=== PATIENT | male | born 1955 | race Asian ===

== ENCOUNTER 2017-05-04 11:43 | Emergency (ER) | payer MEDICARE, OTHER ==
[~2017-05-04] VITALS: Ht 177.8 cm; Wt 79.4 kg
[~2017-05-04 11:43] MED LIST: IBUPROFEN600 MG ORAL; UNOBMED
[2017-05-04] MEDS ORDERED: Norco 5mg/325mg tab PO ONE (11:45)
[2017-05-04 13:34] VITALS: BP 113/75
[2017-05-04] MEDS ORDERED: NORCO 5-325 TA1 EACH ORAL (14:01)
[2017-05-04] MEDS ORDERED: IBUPROFEN600 MG ORAL (14:01)
[2017-05-04 14:19] VITALS: BP 122/71
--- NOTE | 2017-05-04 14:40 | Emergency Room Report ---
History of Present Illness General Chief Complaint: Pain Source: Patient Present Illness HPI 61-year-old male presents ED for evaluation. Patient brought in by EMS for back pain hip pain. States he fell 2 days ago at his house. States he is unable to bear weight. Notes pain to his back and hip. Pain radiating down his right leg. 10 out of 10, throbbing. Denies hitting his head or LOC. Denies any other injuries. No other aggravating relieving factors. Denies any other substance symptoms Allergies: Coded Allergies: No Known Allergies (Unverified , 02/26/16) Patient History Past Medical History: DM, HTN Past Surgical History: none Pertinent Family History: none Social History: Denies: smoking, alcohol use, drug use Immunizations: UTD Reviewed Nursing Documentation: PMH: Agreed, PSxH: Agreed Nursing Documentation-PMH Hx Hypertension: Yes Hx Diabetes: Yes Review of Systems All Other Systems: negative except mentioned in HPI Physical Exam Vital Signs Date Time Temp Pulse Resp B/P (MAP) Pulse Ox O2 Delivery O2 Flow Rate FiO2 05/04/17 11:29 98.2 88 16 112/80 96 Room Air 98.2 Sp02 EP Interpretation: reviewed, normal General Appearance: alert, GCS 15, non-toxic, mild distress Head: normocephalic Eyes: bilateral eye normal inspection, bilateral eye PERRL ENT: hearing grossly normal, normal pharynx, no angioedema, normal voice Neck: full range of motion, no bony tend, supple/symm/no masses Respiratory: normal inspection Cardiovascular #1: normal inspection Gastrointestinal: normal inspection Rectal: deferred Genitourinary: no CVA tenderness, vertebral tenderness Musculoskeletal: normal range of motion, tender - R Hip. RLE Neurologic: alert, oriented x3, responsive, motor strength/tone normal, sensory intact, speech normal Psychiatric: normal inspection Skin: normal inspection Lymphatic: normal inspection Medical Decision Making Diagnostic Impression: Primary Impression: Fall Qualified Codes: W19.XXXA - Unspecified fall, initial encounter Additional Impression: Back pain Qualified Codes: M54.5 - Low back pain ER Course Hospital Course 61 yo M presents to ED c/o back pain, RLE pain s/p fall down stairs Differential diagnoses include: Fracture, dislocation, sprain, contusion Clinical course Patient placed on stretcher. After initial history and physical, I ordered pain medications and imaging studies Xrays prelim read shows no acute fracture/dislocation. CT of Pelvis, and Lspine unremarkable discussed findings iwth patient. on reassessment pain improved. ambulating in ED Diagnosis - fall, back pain Stable and discharged to home with prescription for Motrin, Blanca. apply ice, keep elevated. weight bear as tolerated. Followup with PMD. Return to ED if symptoms recur or worsen Other X-Ray Diagnostic Results Other X-Ray Diagnostic Results #1: X-Ray ordered: R femur # of Views/Limited Vs Complete: 2 View Indication: Pain EP Interpretation: Yes Interpretation: no dislocation, no soft tissue swelling, no fractures Impression: No acute disease Electronically Signed by: Electronically signed by Yosvany Carlos MD Other X-Ray Diagnostic Results #2: X-Ray ordered: R knee # of Views/Limited Vs Complete: 3 View Indication: Pain EP Interpretation: Yes Interpretation: no dislocation, no soft tissue swelling, no fractures Impression: No acute disease Electronically Signed by: Electronically signed by Yosvany Carlos MD Other X-Ray Diagnostic Results #3: X-Ray ordered: R tibfib # of Views/Limited Vs Complete: 2 View Indication: Pain EP Interpretation: Yes Interpretation: no dislocation, no soft tissue swelling, no fractures Impression: No acute disease Electronically Signed by: Electronically signed by Yosvany Carlos MD CT/MRI/US Diagnostic Results CT/MRI/US Diagnostic Results #1: Imaging Test Ordered: CT L spine Impression no acute process CT/MRI/US Diagnostic Results #2: Imaging Test Ordered: CT Pelvis Impression no acute process Last Vital Signs Date Time Temp Pulse Resp B/P (MAP) Pulse Ox O2 Delivery O2 Flow Rate FiO2 05/04/17 14:19 98.1 71 17 122/71 100 Room Air 98.7 Status: improved Disposition: HOME, SELF-CARE Condition: Stable Scripts Ibuprofen* (MOTRIN*) 600 Mg Tablet 600 MG ORAL Q8H Y for For Pain, #30 TAB 0 Refills Prov: YOSVANY CARLOS M.D. 05/04/17 Hydrocodone Bit/Acetaminophen 5-325* (NORCO 5-325*) 1 Each Tablet 1 TAB ORAL Q6H Y for For Pain, #10 TAB 0 Refills Prov: YOSVANY CARLOS M.D. 05/04/17 Patient Instructions: Back Pain, Adult, [id number] YOSVANY CARLOS M.D. May 04, 2017 14:40
--- NOTE | 2017-05-05 10:27 | Diagnostic Imaging Report ---
Indication: Back pain Technique: Continuous helical transaxial imaging of the lumbar spine was obtained from the lung bases to the pubic symphysis. No IV contrast was administered. Coronal 2-D reformats were also obtained. Study obtained in a Siemens sensation [address] Total Dose length Product (DLP): 377.[address] Dose Index Volume (CTDIvol): 12.67 mGy Comparison: None Findings: There is no evidence of an acute fracture or malalignment. Height and configuration of the vertebral bodies and intervertebral discs are within normal limits. Minimal vertebral endplate osteophytes are noted. The facets are mildly hypertrophic. There is no soft tissue swelling. Large cyst projecting off the lower pole left kidney noted. Impression: No acute injury. Mild degenerative disease The CT scanner at [facility] is accredited by the [employer] and the scans are performed using dose optimization techniques as appropriate to a performed exam including Automatic Exposure control.
--- NOTE | 2017-05-05 11:04 | Diagnostic Imaging Report ---
Indication: Pelvic pain. Trauma Technique: Continuous helical transaxial imaging of the pelvis was obtained from the iliac crest to the pubic symphysis. Coronal 2-D reformats were also obtained. Study obtained in a Siemens sensation [address] Intravenous non-ionic contrast was administered. Total Dose length Product (DLP): [address] Dose Index Volume (CTDIvol): 0.25, 11.91 mGy Comparison: None Findings: There is no acute fracture or malalignment identified. Marginal spur formation and joint space narrowing noted involving both hip joints. There is a small right inguinal hernia incidentally noted containing fat. Normal appendix incidentally noted. IMPRESSION: No acute injury. Other incidental findings as above. [facility] has communicated the preliminary results to the Emergency Department. Their findings are largely concordant with this report. The CT scanner at [facility] is accredited by the [employer] and the scans are performed using dose optimization techniques as appropriate to a performed exam including Automatic Exposure control.
--- NOTE | 2017-05-05 11:40 | Diagnostic Imaging Report ---
Indication: Pain 3 views of the right knee were obtained. Findings: No acute fracture, malalignment, or joint effusion are identified. Joint space is relatively well-maintained. Impression: Negative for acute findings.
--- NOTE | 2017-05-05 11:41 | Diagnostic Imaging Report ---
Indication: Pain Findings: 2 views of the right femur were obtained. No acute fractures, malalignment, erosions or periostitis are identified. Soft tissues are unremarkable. Impression: Negative examination of the femur
--- NOTE | 2017-05-05 11:41 | Diagnostic Imaging Report ---
Indication: Pain Comparison: None Findings: Two views of the right tibia and fibula were obtained. No acute fracture, malalignment, or periosteal reaction are identified. Soft tissues are unremarkable. Impression: Negative examination of the tibia and fibula
== END 2017-05-04 14:15 | disposition home or self-care (01) ==
LOC: EDBD 11:43 → EMR 12:30
DX: M54.5 Low back pain (principal); M79.661 Pain in right lower leg; M25.551 Pain in right hip; W10.9XXA Fall (on) (from) unspecified stairs and steps, initial encounter; Y92.9 Unspecified place or not applicable; I10 Essential (primary) hypertension; E11.9 Type 2 diabetes mellitus without complications
CPT/HCPCS: 72131; 72192; 99284